=== PATIENT | male | born 1960 | race Caucasian/White ===

== ENCOUNTER → 2020-02-11 15:44 | Outpatient (CLI) | payer OTHER, SELFPAY ==
[2020-01-15 16:41] VITALS: BMI 24.7
[2020-02-11 17:15] LABS: Anion Gap 6 (5-15); BUN 21 mg/dL (7-18); BUN/Creat Ratio 8.1 RATIO (10-20); Calcium,Total 8.9 mg/dL (8.5-10.1); Chloride 108 mmol/L (98-107); Creatinine, Serum 2.58 mg/dL (0.70-1.30); EST Glomerular Filtration Rate 27 mL/min (>60); Est Glom Filt Rate - Afr Amer 33 mL/min (>60); Glucose 86 mg/dL (74-106); Potassium 3.6 mmol/L (3.5-5.1); Sodium Level 140 mmol/L (136-145)
== END ==
PROVIDERS: Visit Provider Nurse Practitioner Adult Health
DX: R33.8 Other retention of urine (principal)
CPT/HCPCS: 36415; 80048

== ENCOUNTER → 2020-02-18 15:36 | Outpatient (CLI) | payer OTHER, SELFPAY ==
[2020-01-15 16:41] VITALS: BMI 24.7
--- NOTE | 2020-02-18 15:39 | US_ITS ---
URINARY RETENTION EXAMINATION: US Kidney(s) complete (eg, kidneys and bladder) TECHNIQUE: Blas scale and color doppler images were obtained of the kidneys. COMPARISON: None FINDINGS: RIGHT KIDNEY: 11.1 x 5.6 x 6.1 cm. The cortex measures 2 cm.. There is moderate to marked right-sided hydronephrosis. No nephrolithiasis. There is vascular flow seen within the right kidney. LEFT KIDNEY: 9.8 x 4.4 x 6.4 cm. The cortex measures 2 cm. Moderate hydronephrosis. No nephrolithiasis. There is vascular flow. URINARY BLADDER: The bladder appears trabeculated and is thickened measuring 4 mm.. This may be secondary to chronic outlet obstruction. There is also a septation seen within the posterior aspect of the bladder. Ureteral jets are not visualized Bladder volume is 348.39 mL. Postvoid residual is 312.40 mL. US/Kidney and Bladder IMPRESSION: Moderate to marked right and moderate left hydronephrosis. Nonvisualization of the ureters or ureteral jets Trabeculation of the bladder with thickened bladder wall suggesting chronic outlet obstruction Left kidney is smaller than the right however the cortex is preserved Vascular flow seen within the kidneys bilaterally at 0653 Reported and signed by: Jing Whipple DO Electronically Signed: Jing Whipple DO at 6:52 EST Tel , Service support ,
== END ==
PROVIDERS: Referring Provider Nurse Practitioner Adult Health; Visit Provider Nurse Practitioner Adult Health
DX: R33.8 Other retention of urine (principal)
CPT/HCPCS: 76770

== ENCOUNTER 2020-04-09 05:45 | Day surgery (SDC) | payer OTHER, SELFPAY ==
[2020-01-15 16:41] VITALS: BMI 24.7
--- NOTE | 2020-04-07 15:27 | EKG12_ITS ---
Test Reason : PREOP Blood Pressure : / mmHG Vent. Rate : 072 BPM Atrial Rate : 072 BPM P-R Int : 158 ms QRS Dur : 088 ms QT Int : 378 ms P-R-T Axes : 076 054 061 degrees QTc Int : 413 ms Normal sinus rhythm Normal ECG Confirmed by MINAL VENTURA, ASUNCION ([id number]), advertising editor EDELMIRA DAMICO ([id number]) on 04/10/2020 10:22:59 AM Referred By: Ian Powell Confirmed By:ASUNCION FONTAINE MD
[2020-04-07 17:17] LABS: Absolute Lymphocyte Count 2.21 X10^3/uL (0.83-4.51); Absolute Neutrophil Count 4.9 X10^3/uL (2.0-7.7); Basophil# 0.05 X10^3/uL; Basophil% 0.6 % (0-1); Eosinophil# 0.16 X10^3/uL; Hematocrit 39.5 % (40-54); Hemoglobin 12.9 g/dL (13.0-16.5); Lymphocyte # 2.21 X10^3/ul (4.0); Lymphocyte % 27.5 % (19-41); Mean Corp Hgb Conc 32.7 g/dL (32-36); Mean Corpuscular Hgb 30.9 pg (27.0-32.0); Mean Corpuscular Volume 94.7 fL (80-94); Mean Platelet Vol. 10.9 fl (6.2-12.0); Monocyte# 0.67 X10^3/uL; Monocyte% 8.3 % (0-10); NRBC Flagged by Analyzer 0 % (0-5); Neutrophil # 4.94 X10^3/uL (2.7-7.7); Neutrophil % 61.4 % (47-70); Platelet Count 166 K/mm3 (150-450); RBC Distribution Width CV 13.3 % (11.6-14.6); Red Blood Count 4.17 M/mm3 (4.6-6.2); White Blood Count 8.1 K/mm3 (4.4-11.0)
[2020-04-07 17:51] LABS: Anion Gap 4 (5-15); BUN 20 mg/dL (7-18); BUN/Creat Ratio 14.2 RATIO (10-20); Calcium,Total 8.5 mg/dL (8.5-10.1); Chloride 109 mmol/L (98-107); Creatinine, Serum 1.41 mg/dL (0.70-1.30); EST Glomerular Filtration Rate 54 mL/min (>60); Est Glom Filt Rate - Afr Amer 66 mL/min (>60); Glucose 86 mg/dL (74-106); Potassium 3.8 mmol/L (3.5-5.1); Sodium Level 141 mmol/L (136-145)
[2020-04-09] VITALS (15 sets, daily range): BP systolic 124–154; BP diastolic 74–97; PULSE 55–92; RESP 16–18; TEMP 36.3–37; O2SAT 94–100; BMI 23.8; BMI 23.9
[2020-04-09] MEDS: Lactated Ringers 1,000 ML 100 ML IV (06:41)
[2020-04-09] MEDS: Cefazolin 2 GM in 0.9% Normal Saline 100 ML IV (07:20)
--- NOTE | 2020-04-09 07:30 | PROS_PTH ---
PATIENT: PRADEEP WHYTE LOC: [facility] [place] U#:[id number] AGE/SX: 60/M ROOM: RE04/09/[address]: Dr. Ian Powell MD : [id number] BED: DIS: 04/10/2020 SPEC #: [id number] RECD: 04/09/20 09:26 STATUS: GWENDOLYN AVILES #: [id number] BARBRA: 04/09/20 07:[address]: Ian Powell DEPT: SURGICAL PATHOLOGY RECD BY: Elva Johnson ENTERED: 04/09/20 12:54 SP TYPE: TURP OTHR DR: Dr. Anni Linda MD Tissues: Prostate, NOS Procedures: Surgery Specimen Level IV HEADER OPERATION: Cysto, TUR, prostate, [employer] PRE-OP DIAGNOSIS: BPH with obstruction TISSUE SUBMITTED: Prostate tissue MICROSCOPIC DIAGNOSIS Prostate tissue, TUR: Benign prostatic hyperplasia, glandular and stromal type. SJ:carol 04/10/2020 MICROSCOPIC DESCRIPTION Slides are reviewed. GROSS DESCRIPTION Received is one container labeled with the patient's name and designated prostate chips. The specimen consists of multiple irregular fragments of pink-romero, rubbery, soft tissue that in aggregate weigh 6.6 gm and measure in aggregate 5 x 4 x 1.5 cm. The entire specimen is submitted in seven cassettes. / LORNE:carol 04/09/20 TC:5 CPT: 44803
--- NOTE | 2020-04-09 08:13 | PCM.HP.STD ---
History of Present Illness Date of Admission: 04/09/20 Chief Complaint: BPH with obstruction The patient is a 60 year old male with a history of BPH with obstruction on cystoscopy is found to have obstructive short prostate but a very distended trabeculated bladder with chronic obstruction we plan to proceed with a TURP today. He understands is possible this may not help with bladder emptying to the bladder is already stretched out. Past Medical History Allergies No Known Allergies Allergy (Unverified 04/02/20 14:57) Home Medications: Ambulatory Orders Medication Instructions Recorded Tamsulosin HCl [Flomax] 0.4 mg PO DAILY 04/02/20 Surgical History: no surgical history Smoking Status: Current every day smoker - *Family History Paternal History Items: Heart Disease Review of Systems Constitutional: Denies: Chills, Fever, Weight Change HEENT: Denies: Head Aches, Sinus Congestion, Sinus Drainage Cardiovascular: Denies: Chest Pain, Palpitations Respiratory: Denies: Cough, Shortness of breath at rest, Sputum production Gastrointestinal: Denies: Abdominal Pain, Nausea, Vomiting Genitourinary: Denies: Dysuria Musculoskeletal: Denies: Joint Pain, Joint Tenderness Skin: Denies: Rash, Wounds Neurological: Denies: Numbness, Tingling, Focal weakness Psychiatric: Denies: Anxiety, Depression, Homicidal Ideations, Suicidal Ideations Hematologic/ Lymphatic: Denies: Easy Bruising, Easy Bleeding VTE Information - Inpt Only VTE Present on Admission: No VTE Mechan Device Prophylaxis: SCD's - Physical Exam Vitals/I&O's: Vital Signs Temp Pulse Resp BP Pulse Ox 98.5 F 72 18 134/90 H 98 04/09/20 06:25 04/09/20 06:25 04/09/20 06:25 04/09/20 06:25 04/09/20 06:25 Oxygen Delivery Method Room Air Weight: 73.3 kg Body Mass Index (BMI) 23.8 General: Alert, Oriented x3, Cooperative HEENT: Atraumatic, PERRLA, EOMI, Normocephalic Neck: Supple, No JVD, Negative Carotid Bruits Lungs: Clear to auscultation, Normal air movement Cardiovascular: Regular rate, No murmurs Abdomen: Bowel Sounds Present, Soft, Non Tender Extremities: No edema, Capillary Refill Less than 3 Seconds Skin: No rashes, No breakdown Musculoskeletal: No Tenderness to Palpation of Joints or Extremities Neurological: Cranial nerves II-XII grossly intact Psych/Mental Status: Normal Affect, Appropriate Microbiology Past 72 Hours 04/07/20 15:30 Interface Orders SARS-CoV-2 Antigen (Rapid) - Final Current Medications Lactated Ringer's () 1,000 mls @ 100 mls/hr IV .Q10H KATHY Last Admin: 04/09/20 06:41 Dose: 100 mls/hr Documented by: Assessment/Plan All Active Problems (Last Reviewed 01/15/20 @ 16:55 by Ben Christian) Initiating urination requires straining (Acute) Increased urinary frequency (Acute) Plan to proceed with a TURP.
--- NOTE | 2020-04-09 08:17 | DCINST_ITS ---
Discharge Diet: Light diet - advance as tolerated Discharge Activity: Return to Normal Activity Call your doctor if your incision/area has: Continuous Slow Oozing, Sudden Increased Bleeding Allergies/Adverse Reactions: Allergies No Known Allergies Allergy (Unverified 04/02/20 14:57) Medications to take at Discharge Tamsulosin HCl [Flomax] 0.4 mg PO DAILY 04/02/20 Ciprofloxacin [Cipro] 500 mg PO BID #14 tab 04/09/20 Ibuprofen 600 mg PO Q4H PRN PRN #20 tab 04/09/20 Orders to be completed after discharge: 12 Lead EKG [[facility]] Location: None Selected Primary Care Physician: Anni Linda MD [Primary Care Provider] - Test Results: Test results from this visit will be discussed in further detail at your follow- up appointment, if applicable. Please Follow Up With: Ian Powell MD When: in 2 weeks, please call to make an appointment.
--- NOTE | 2020-04-09 08:21 | OP.PCM_ITS ---
Report of Operation Date of Procedure: 04/09/20 Pre-Operative Diagnosis: BPH with obstruction Post-Operative Diagnosis: Same Surgery/Procedure Performed:: Transurethral section of prostate Description of Surgical Findings:: In the preoperative setting I discussed with the patient how the surgery would be done with expect afterwards. We discussed how a prostate resection is done and we discussed the risk of the surgery including, bleeding, infection, retrograde ejaculation, changes with ejaculation or intercourse,. We discussed the possibility that the resection of the prostate may not alleviate his urinary symptoms. We discussed the small risk of developing scar tissue along the urethral channel and strictures. We also discussed the chance of the prostate could grow back and he may need further surgery or treatment in the future for prostate problems. Patient was taken back to the operating room, timeout procedure was performed, he was identified and marked and placed on the operating room table. He underwent general anesthesia. He was placed in dorsolithotomy position. Penis and testicles were prepped and draped in usual sterile fashion. Went into the bladder using the visual obturator with a resectoscope. Once inside the bladder identified the right and left ureteral orifice. I then identified the prostate and the anatomy of the prostate. He had a very trabeculated and distended weak looking bladder. I marked out the area of the sphincter and the verumontanum was identified. I then proceeded with the prostate resection first resected the median lobe. And then resected the right lobe of the prostate. Then to resect the left lobe of the prostate. I then resected the apical tissue of the prostate. Made sure that there was no injury to the sphincter or the verumontanum was still intact. At the end of the resection all the chips were Ellik out of the bladder. I then identified the left and right ureteral orifice and these were confirmed to be in good position and effluxing and not injured. The resectoscope was removed, a 22 Ukrainian catheter was placed into the bladder on continuous irrigation. And the urine was fairly light pink color and draining normally. He was taken back to the PACU in good condition. Type of Anesthesia:: General Drains: 3 way mendez - Admit VTE Documentation VTE Present on Admission: No VTE Mechan Device Prophylaxis: SCD's
[2020-04-09] MEDS: 0.9% Normal Saline 1,000 ML 75 ML IV ×2 (08:36→12:45)
[2020-04-09] MEDS: Acetaminophen 325 MG Tablet PO ×2 (12:46→19:02)
[2020-04-09] MEDS: oxyCODONE 5 MG Tablet PO ×2 (12:46→19:02)
[2020-04-09] MEDS: Ciprofloxacin 400 MG/200 ML BAG 200 MG IV ×2 (14:31→22:00)
[2020-04-09] MEDS: Tamsulosin HCl 0.4 MG Capsule PO (16:38)
[2020-04-09] MEDS: Docusate Sodium 100 MG Capsule PO (22:00)
[2020-04-10 01:06] VITALS: BP 127/83; PULSE 63; RESP 16; TEMP 37.3; O2SAT 93; BMI 23.9
[2020-04-10] MEDS: 0.9% Normal Saline 1,000 ML 75 ML IV (05:05)
[2020-04-10 05:06] VITALS: BP 122/77; PULSE 64; RESP 16; TEMP 37.2; O2SAT 94
[2020-04-10 05:10] VITALS: BMI 23.9
[2020-04-10] MEDS: Acetaminophen 325 MG Tablet PO (05:12)
[2020-04-10 08:06] VITALS: BP 146/62; PULSE 68; RESP 14; TEMP 37.1; O2SAT 90
[2020-04-10] MEDS: Docusate Sodium 100 MG Capsule PO (09:07)
[2020-04-10] MEDS: oxyCODONE 5 MG Tablet PO (09:07)
[2020-04-10] MEDS: Pantoprazole Sodium 40 MG Tablet PO (09:07)
[2020-04-10] MEDS: Ciprofloxacin 400 MG/200 ML BAG 200 MG IV (09:07)
[2020-04-10 09:11] VITALS: BMI 23.9
[2020-04-10 10:52] VITALS: PULSE 69
[2020-04-10 11:31] VITALS: BP 128/73; PULSE 73; RESP 14; TEMP 36.3
--- NOTE | 2020-04-10 12:10 | PHA.DC.MC ---
Pharmacy Service has performed discharge medication reconciliation and counseling for this patient. The patient was counseled on the following discharge medications and changes in medications for homegoing were reviewed. 1. CIPRO 2. IBUPROFEN The Reason for Use, instructions for use, and potential side effects were reviewed for all new medications. The patient's questions regarding all of their medications were answered. The patient was able to verbally demonstrate an understanding of their discharge medications. Home Medications Tamsulosin HCl [Flomax] 0.4 mg PO DAILY 04/02/20 Ciprofloxacin [Cipro] 500 mg PO BID #14 tab 04/09/20 Ibuprofen 600 mg PO Q4H PRN PRN #20 tab 04/09/20 The patient's discharge medication list was reviewed for discrepancies and discrepancies were resolved.
--- NOTE | 2020-04-10 16:08 | NURSING ---
Late entry: Student documentation reviewed.
== END 2020-04-10 12:58 | disposition home or self-care (01) ==
LOC: SDC 05:46 → AC 05:46 → MS3 11:58
PROVIDERS: Anesthesiology; PCP Internal Medicine; Referring Provider Urology; Visit Provider Urology
PROC: (CPT 52601; principal; 2020-04-09 07:20)
DX: N40.1 Benign prostatic hyperplasia with lower urinary tract symptoms (principal); N13.8 Other obstructive and reflux uropathy; Z20.828 Contact with and (suspected) exposure to other viral communicable diseases; F17.200 Nicotine dependence, unspecified, uncomplicated
CPT/HCPCS: 00914; 52601; 36415; 80048; 85025; 87426; 88305; 93005; 99406; C9803; J7030; J7120; J0744; J2405